=== PATIENT | male | born 1975 | race Caucasian/White ===

== ENCOUNTER 2018-09-11 17:08 | Observation (INO) ==
[2018-09-11 17:16] VITALS: BMI 25.7
[2018-09-11] MEDS ORDERED: BENTYL I.M. INJ 10 MG IM ONE ×2 (18:12→18:43)
[2018-09-11 18:29] LABS: BASOPHILS # (AUTO) 0.1 X10^3/uL (0.0-0.1); BASOPHILS % (AUTO) 1.1 % (0.2-1.0); EOSINOPHILS # (AUTO) 0.1 x10^3/uL (0.0-0.2); HEMATOCRIT 44.8 % (42.0-54.0); HEMOGLOBIN 15.9 g/dL (13.5-18.0); LYMPHOCYTES # (AUTO) 1.2 X10^3/uL (1.3-2.9); LYMPHOCYTES % (AUTO) 24.1 % (21.0-51.0); MEAN CORPUSCULAR HEMOGLOBIN 31.8 pg (27.0-34.0); MEAN CORPUSCULAR HGB CONC 35.5 g/dL (33.0-35.0); MEAN CORPUSCULAR VOLUME 89.6 fL (80.0-100.0); MEAN PLATELET VOLUME 9.5 fL (7.4-11.0); MONOCYTES # (AUTO) 1.1 x10^3/uL (0.3-0.8); MONOCYTES % (AUTO) 22.7 % (0.0-13.0); NEUTROPHILS # (AUTO) 2.5 x10^3/uL (2.2-4.8); NEUTROPHILS % (AUTO) 51.1 % (42.0-75.0); PLATELET COUNT 146 X10^3/uL (150.0-450.0); RED CELL DISTRIBUTION WIDTH 12.9 % (11.6-16.5); WHITE BLOOD COUNT 4.9 X10^3/uL (3.6-10.0)
--- NOTE | 2018-09-11 18:39 | RAD ---
HISTORY: Lower abdominal pain, nausea, diarrhea, chills Study: Acute abdominal series Comparison: None Findings: The trachea is midline. The cardiac silhouette is unremarkable. The lungs are clear without focal infiltrate or effusion. The bony thorax is unremarkable. Flat plate and upright evaluation of the abdomen demonstrates a nonspecific bowel gas pattern. There are a few air-fluid levels within the abdomen which could reflect an ileus. There is no radiographic evidence to suggest obstruction. No pathological soft tissue mass or calcification can be observed. The bony structures are grossly intact. IMPRESSION: 1. No acute cardiopulmonary disease. 2. Multiple air-fluid levels which could reflect an ileus. No radiographic evidence of obstruction identified. Reported By:
[2018-09-11 18:59] LABS: BAND NEUTROPHILS % 17 % (0-10); METAMYELOCYTES % 2; PLATELET MORPHOLOGY COMMENT NORMAL (NORMAL)
[2018-09-11] MEDS ORDERED: NS 1000 ML 1,000 ML ONE (19:54)
--- NOTE | 2018-09-11 20:02 | DR.ABDMALE ---
HPI Time seen Time Seen by Provider: 09/11/18 18:10 PCP Primary Care Physician: AMANDA Complaint Chief Complaint:: PT. C/O LOWER ABDOMINAL PAIN, NAUSEA, DIARRHEA, CHILLS. PT. IS CONCERNED ABOUT HIS APPENDIX. PT. C/O SEVERE SHARP PAINS UPON MOVEMENT TO RLQ. PT. WAS SEEN AT [facility] ON 09/10/18. Mode of arrival Mode of Arrival: Ambulatory Timing Onset of Chief Complaint: 09/08/18 PMH PMH Past Medical History: No Past Surgical History: No Surgical History: No History Family History History of Family Medical Conditions: Yes Family Medical History: Diabetes Mellitus, Cancer, [place], Coronary Artery Disease and Hypertension Social History Does patient currently use any type of tobacco product: Yes Have you used tobacco products in the last 12 months: Yes Type of Tobacco Use: Cigarettes Does any household member use tobacco: No Alcohol Use: None Do you use any recreational Drugs:: No Lives With: Spouse Lives Where: Home infectious screening In the last 2 months have you had wt loss of >10#?: NO Have you had fever, night sweats or hemotysis?: No Have you traveled outside the country in the last 6 months?: No Isolation: Standard PE Vital Signs Vital Signs: Temp Pulse Pulse Resp BP BP Pulse Ox 09/12/18 04:00 98.2 F 68 18 109/72 100 09/12/18 00:00 98.9 F 74 18 99/56 100 09/11/18 20:15 99.8 F H 84 18 101/58 100 09/11/18 17:12 100.6 F H 99 H 24 131/79 100 General Limitations: No Limitations General Appearance: Alert and In No Apparent Distress Head Head Exam: Normal Inspection, Atraumatic and Normocephalic Eyes Eye exam: Normal Appearance, PERRL and EOMI ENT ENT Exam: Normal Exam, Normal Oropharynx and Normal External Ear Exam Neck Neck Exam: Normal Inspection and Full ROM Chest Chest Inspection: Normal Inspection Respiratory Respiratory Exam: Normal Lung Sounds Bilat Respiratory Exam: Bilateral: Clear to Auscultation Cardiovascular Cardiovascular Exam: Regular Rate and Normal Rhythm Abdominal Exam Abdominal Exam: Normal Inspection, Normal Bowel Sounds, Distention, Tenderness and Hyperactive Bowel Sounds Abdominal Tenderness: Diffuse Rectal Rectal Exam: Deferred Back Back Exam: Normal Inspection and Full ROM Extremeties Extremities Exam: Normal Inspection and Full ROM Exam: Male: Deferred Neurologic Neurological Exam: Alert, Oriented X3 and CN II-XII Intact Psychiatric Psychiatric Exam: Normal Affect and Normal Mood Skin Skin Exam: Warm, Dry and Normal Color COURSE Treatment Treatment: IV Hydration acetaminophen 1gm. Consultation Called: 19:55 Consultation Comments: Dr. Walton agreed to admits patient for IV hydration and evaluation ROR Labs Reviewed Laboratory Results Reviewed?: Yes Result Diagrams: 09/11/18 18:18 Laboratory: WBC 4.9 X10^3/uL (3.6-10.0) 09/11/18 18:18 RBC 5.00 X10^6/uL (4.7-6.0) 09/11/18 18:18 Hgb 15.9 g/dL (13.5-18.0) 09/11/18 18:18 Hct 44.8 % (42.0-54.0) 09/11/18 18:18 MCV 89.6 fL (80.0-100.0) 09/11/18 18:18 MCH 31.8 pg (27.0-34.0) 09/11/18 18:18 MCHC 35.5 g/dL (33.0-35.0) H 09/11/18 18:18 RDW 12.9 % (11.6-16.5) 09/11/18 18:18 Plt Count 146 X10^3/uL (150.0-450.0) L 09/11/18 18:18 Plt Count Comment Adequate (ADEQUATE) 09/11/18 18:18 MPV 9.5 fL (7.4-11.0) 09/11/18 18:18 Neut % (Auto) 51.1 % (42.0-75.0) 09/11/18 18:18 Lymph % (Auto) 24.1 % (21.0-51.0) 09/11/18 18:18 [place] % (Auto) 22.7 % (0.0-13.0) H 09/11/18 18:18 Eos % (Auto) 1.0 % (0.9-2.9) 09/11/18 18:18 Baso % (Auto) 1.1 % (0.2-1.0) H 09/11/18 18:18 Neut # (Auto) 2.5 x10^3/uL (2.2-4.8) 09/11/18 18:18 Lymph # (Auto) 1.2 X10^3/uL (1.3-2.9) L 09/11/18 18:18 [place] # (Auto) 1.1 x10^3/uL (0.3-0.8) H 18 18:18 Eos # (Auto) 0.1 x10^3/uL (0.0-0.2) 09/11/18 18:18 Baso # (Auto) 0.1 X10^3/uL (0.0-0.1) 09/11/18 18:18 Absolute Nucleated RBC 0.1 /100WBC 09/11/18 18:18 Total Counted 100 09/11/18 18:18 Neutrophils % (Manual) 21 % (39-76) L 09/11/18 18:18 Band Neutrophils % 17 % (0-10) H 09/11/18 18:18 Lymphocytes % (Manual) 31 % (13-43) 09/11/18 18:18 Monocytes % (Manual) 29 % (4-9) H 09/11/18 18:18 Metamyelocytes % 2 09/11/18 18:18 Plt Morphology Comment Normal (NORMAL) 09/11/18 18:18 RBC Morphology Normal (NORMAL) 09/11/18 18:18 C-Reactive Protein 49.50 mg/L (0-3.0) H 09/11/18 18:18 Amylase 39 Units/L (25-115) 09/11/18 18:18 Lipase 126 Units/L (73-393) 09/11/18 18:18 Influenza Type A (PCR) Negative (NEGATIVE) 09/11/18 18:09 Influenza Type B (PCR) Negative (NEGATIVE) 09/11/18 18:09 Other Results Comments: Flat plate and upright evaluation of the demonstrates a nonspecific bowel gas pattern. There are a few air-fluid levels within the abdomen which could reflect an ileus. There is no radiographic evidence to suggest obstruction. No pathological soft tissue mass or calcification can be o bserved. The bony structures are grossly intqact. XRAY XRAY Interpreted by: Radiologist ADDITIONAL NOTES Additional Notes Additional Notes: Patient admitted for IV hydration and observation
[2018-09-11] MEDS: NS 1000 ML 1,000 ML IV SCH (20:04)
[2018-09-11] MEDS: OFIRMEV IV 1000 MG VIAL 500 MG/50 ML VIAL IV PRN (22:52)
[2018-09-12] MEDS ORDERED: NS 1000 ML 1,000 ML ONE (03:40)
[2018-09-12] MEDS: NS 1000 ML 1,000 ML IV SCH ×2 (03:42→05:53)
[2018-09-12] MEDS ORDERED: OFIRMEV IV 1000 MG VIAL 500 MG/50 ML VIAL IV PRN (05:48)
[2018-09-12] MEDS: OFIRMEV IV 1000 MG VIAL 500 MG/50 ML VIAL IV PRN (05:52)
[2018-09-12 08:06] LABS: BASOPHILS % (AUTO) 0.7 % (0.2-1.0); EOSINOPHILS # (AUTO) 0.1 x10^3/uL (0.0-0.2); HEMOGLOBIN 15.1 g/dL (13.5-18.0); LYMPHOCYTES # (AUTO) 1.7 X10^3/uL (1.3-2.9); MEAN CORPUSCULAR HEMOGLOBIN 31.6 pg (27.0-34.0); MONOCYTES # (AUTO) 1.3 x10^3/uL (0.3-0.8); PLATELET COUNT 145 X10^3/uL (150.0-450.0)
[2018-09-12 08:17] LABS: ALANINE AMINOTRANSFERASE 28 Units/L (12-78); ALKALINE PHOSPHATASE 95 Units/L (46-116); ASPARTATE AMINO TRANSFERASE 16 Units/L (15-37); BLOOD UREA NITROGEN 10 mg/dL (7-18); CALCIUM 8.5 mg/dL (8.5-10.1); CARBON DIOXIDE 27.8 mmol/L (21-32); CHLORIDE 104 mmol/L (98-107); COR CA(FOR HYPOALB) 9.3 mg/dL (8.5-10.1); CREATININE 0.92 mg/dL (0.70-1.30); SODIUM 139 mmol/L (136-145); TOTAL PROTEIN 6.7 g/dL (6.4-8.2); eGFR NON BLACK RACES > 60 (>60)
[2018-09-12 08:19] LABS: EOSINOPHILS % (AUTO) 1.4 % (0.9-2.9); HEMATOCRIT 42.7 % (42.0-54.0); LYMPHOCYTES % (AUTO) 28.5 % (21.0-51.0); MEAN CORPUSCULAR HGB CONC 35.4 g/dL (33.0-35.0); MEAN CORPUSCULAR VOLUME 89.2 fL (80.0-100.0); MEAN PLATELET VOLUME 9.5 fL (7.4-11.0); MONOCYTES % (AUTO) 21.2 % (0.0-13.0); NEUTROPHILS # (AUTO) 2.9 x10^3/uL (2.2-4.8); NEUTROPHILS % (AUTO) 48.2 % (42.0-75.0); RED BLOOD COUNT 4.79 X10^6/uL (4.7-6.0); RED CELL DISTRIBUTION WIDTH 12.6 % (11.6-16.5); WHITE BLOOD COUNT 6.1 X10^3/uL (3.6-10.0)
[2018-09-12 08:35] LABS: BAND NEUTROPHILS % 17 % (0-10)
[2018-09-12 08:36] LABS: METAMYELOCYTES % 2; PLATELET MORPHOLOGY COMMENT NORMAL (NORMAL)
[2018-09-12] MEDS ORDERED: DILAUDID INJ IVP PRN (09:04)
[2018-09-12] MEDS ORDERED: ZOFRAN INJ 4 MG VIAL IVP PRN (09:41)
[2018-09-12] MEDS ORDERED: ZOFRAN INJ 4 MG VIAL ONE (09:41)
[2018-09-12] MEDS ORDERED: MERREM VIAL 500 MG in NS 100 ML IV + SPIKE MINIBAG* 100 ML IV SCH (10:00)
[2018-09-12] MEDS ORDERED: NS 100 ML IV + SPIKE MINIBAG* 100 ML IV ONE (10:02)
[2018-09-12] MEDS ORDERED: MERREM VIAL ONE (10:02)
[2018-09-12 12:16] VITALS: BP 101/53
--- NOTE | 2018-09-12 12:20 | CT ---
CT abdomen and pelvis with contrast Indication: Lower abdominal pain with nausea and diarrhea Comparison: None available Technique: Multiple axial images of the abdomen and pelvis were obtained from the lung bases to the pubic symphysis after the administration of IV contrast. Coronal and sagittal reformatted images were also provided. Findings: The lung bases are clear. No focal hepatic lesion is identified. Bile ducts are normal in caliber. The gallbladder, spleen, pancreas and adrenal glands are normal. Neither kidney demonstrates evidence of nephrolithiasis, hydronephrosis or mass. Upper GI tract demonstrates no evidence of mass or obstruction. Urinary bladder is normal. Prostate gland demonstrates eccentric dystrophic calcification within the left lateral aspect of the base of the prostate gland seen on axial image 83. The rectum, colon, appendix and terminal ileum demonstrates moderate increased mucosal enhancement, fluid distention with surrounding mesenteric and pericolonic fat stranding. There is also small amount of free fluid noted adjacent to the appendix and tracking into the lower abdomen. There is no evidence of mass or obstruction. Abdominal aorta is normal in caliber. No adenopathy. Review of bone windows demonstrates no acute osseous abnormality. Impression: 1. Fairly severe increased mucosal enhancement and fluid distention of the rectum, colon appendix and terminal ileum is consistent with an acute enterocolitis. There is no convincing evidence of an obstructive process within the appendix to suggest acute appendicitis. 2. Small amount of right lower quadrant and lower abdominal free fluid is likely reactive to the above described acute enterocolitis. Reported By:
[2018-09-12] MEDS ORDERED: MERREM VIAL IVP SCH (14:00)
== END 2018-09-12 13:30 | disposition home or self-care (01) ==
LOC: ER 17:11 → OBS 17:11
PROVIDERS: ADMIT Obstetrics & Gynecology Obstetrics; ATTEND Obstetrics & Gynecology Obstetrics
DX: R10.84 Generalized abdominal pain; R19.7 Diarrhea, unspecified; K56.7 Ileus, unspecified; R79.82 Elevated C-reactive protein (CRP); R10.31 Right lower quadrant pain
CPT/HCPCS: 36415; 74022; 74177; 80053; 82150; 83690; 85025; 86140; 87502; 96365; 96367; 96372; 96374; 99282; 99284; A4222; G0378; J0131; J0500; J1170; J2185; J2405; J7030; J7050